=== PATIENT | female | born 1980 | race Caucasian/White ===

== ENCOUNTER 2024-02-12 13:49 | Outpatient (AMB) | payer MEDICAID, SELFPAY ==
--- NOTE | 2024-02-12 13:51 | MHC.OFFVIS ---
Vital Signs 02/12/24 14:05 Height 5 ft 2.5 in Weight 170 lb BMI 30.6 BP 110/74 Blood Pressure Location Lt brachial Position Sitting Pulse 81 Intake Visit Reasons: ventral incisional hernia with ongoing pain Intake Note: Patient is seen in office for evaluation and treatment of ventral incisional hernia. Pt c/o: pt can feel a lump on the RUQ for a month, admits to pain with laugh, cry, sneezing, cough, diarrhea, nausea, vomit Pi/Senior Research Associate Required: No Accompanied by: Other Relationship Allergies Penicillins [PENICILLINS] Allergy (Unknown, Unverified 02/12/24 13:59) HIVES Sulfa (Sulfonamide Antibiotics) [SULFA (SULFONAMIDE ANTIBIOTICS)] Allergy (Unknown, Unverified 02/12/24 13:59) HIVES sulfamethoxazole [From BACTRIM] Allergy (Unknown, Unverified 02/12/24 13:59) HIVES trimethoprim [From BACTRIM] Allergy (Unknown, Unverified 02/12/24 13:59) HIVES Medication List - Last Reconciled 02/12/24 by Pino Barahona MD baclofen 5 mg PO TID clonazepam 1 mg PO QID PRN clonidine HCl 0.1 mg PO TID ergocalciferol (vitamin D2) 1,250 mcg PO QWEEK gabapentin 300 mg PO TID ibuprofen 800 mg PO TID mirtazapine 7.5 mg PO DAILY trazodone 150 mg PO BEDTIME HPI Comments Details: 43-year-old female patient presenting for evaluation of a ventral hernia. She complains of abdominal pain located in the upper abdomen which developed after previous colon surgery. She has a history of diverticulitis with an abscess and underwent a colectomy with loop ileostomy in the right lower quadrant in 2019. The ileostomy was subsequently reversed approximately [address] abdomen and pelvis with contrast performed at [facility] revealed prior sigmoid colectomy with intact anastomosis in the pelvis. A broad-based supraumbilical ventral hernia containing nonobstructed transverse colon was identified. She presents to discuss repair of this incisional hernia. COUNT INCLUDES THE [facility] Surgical History History of reversal of ileostomy Hx of lumpectomy Hx of section Family History Father Cancer of unknown origin Social History Alcohol intake: current Patient Tobacco Use Status: Current everyday Tobacco user Review of Systems Const All systems reviewed & are unremarkable except as noted in HPI and below Denies chills, Denies fever(s), Denies headache(s), Denies poor appetite and Denies weakness ENT Denies headache(s) Card Denies chest pain, Denies irregular heart rhythm, Denies palpitations and Denies dyspnea Resp Denies cough, Denies excessive phlegm production and Denies dyspnea GI Denies abdominal pain, Denies bloating, Denies change in bowel habits, Denies constipation, Denies heartburn, Denies diarrhea, Denies nausea and Denies vomiting Denies urinary frequency Musc Denies back pain, Denies muscle weakness and Denies numbness Skin/Breast Denies changing lesions and Denies unusual bruising Neuro Denies headache(s), Denies numbness, Denies paresthesias and Denies weakness Psych Denies anxiety and Denies depression Endo Denies palpitations Frankie/Lymph Denies lymphadenopathy Physical Exam Vital Signs: Last Vital Signs Pulse 81 02/12/24 14:05 BP 110/74 02/12/24 14:05 BMI result Body Mass Index 30.6 Const General: cooperative and no acute distress Nutritional Appearance: well nourished Orientation/consciousness: patient oriented x3 Limitations: no limitations HEENT Head: Yes normocephalic and Yes atraumatic Ears: hearing grossly normal bilaterally Resp Effort & Inspection: normal respiratory effort, no audible wheezes, no cough and no respiratory distress Cardio Jugular venous distension: no JVD GI Other: Large midline incision as well as incision in the right lower quadrant from prior colon surgery. Hernia defect noted above the umbilicus in the midline measuring approximately 10 cm in diameter extending to the right of the umbilicus. Hernia does reduce with light pressure but is tender to palpation. There is no evidence of strangulation at this time. Inspection: Yes normal to inspection Skin Other: Warm, dry, no rash Neuro General: patient oriented x3 Extrem General: Yes no clubbing, cyanosis or edema Assessment & Plan Assessment & Plan (1) Incisional hernia: Code(s): K43.2 - Incisional hernia without obstruction or gangrene Category: Medical Qualifiers: Obstruction and gangrene presence: without obstruction or gangrene Qualified Code(s): K43.2 - Incisional hernia without obstruction or gangrene Plan 43-year-old female patient with prior history of sigmoid colectomy for perforated diverticulitis with ileostomy followed by closure of ileostomy. She now has an incisional hernia in the upper abdomen which is at least 10 cm in diameter. This was confirmed by CT abdomen and pelvis and found to contain transverse colon which is not obstructed. I recommended repair of this incisional hernia with mesh and after discussion of the procedure, risks, and alternatives, she consents to repair of incisional hernia with mesh. Coding Level of Care Code New Pt Level 4 (04798) Diagnoses Incisional hernia, without obstruction or gangrene K43.2 Obstruction and gangrene presence: without obstruction or gangrene
[2024-02-12 14:05] VITALS: BP 110/74; PULSE 81; BMI 30.6
== END 2024-02-12 14:20 | disposition home or self-care (01) ==
PROVIDERS: PCP Family Medicine; Visit Provider Surgery
DX: K43.2 Incisional hernia without obstruction or gangrene (principal)
CPT/HCPCS: 99204

== ENCOUNTER → 2024-02-12 13:49 | Outpatient (BNVA) | payer OTHER, SELFPAY | PROVIDERS: PCP Family Medicine; Visit Provider Surgery | DX: K43.2 Incisional hernia without obstruction or gangrene (principal) | CPT/HCPCS: 99202 ==

== ENCOUNTER → 2024-03-31 09:39 | Outpatient (BNV) | payer MEDICAID, SELFPAY | PROVIDERS: PCP Nurse Practitioner; Visit Provider Surgery | DX: K43.2 Incisional hernia without obstruction or gangrene (principal) | CPT/HCPCS: 49595; 99232; 99238 ==

== ENCOUNTER 2024-04-02 08:50 | Inpatient (IN) | payer MEDICAID, SELFPAY ==
[2024-03-22 15:09] VITALS: BMI 29.7
[2024-03-31] VITALS (15 sets, daily range): BP systolic 111–175; BP diastolic 62–119; PULSE 75–94; RESP 7–18; TEMP 36.2–36.6; O2SAT 94–98; BMI 30.5; BMI 31.0
[2024-03-31 10:26] LABS: UPreg QC Valid YES; Urine Pregnancy NEGATIVE (NEGATIVE)
[2024-03-31] MEDS: Lactated Ringers 1,000 ML 100 ML IVCONT (10:45)
[2024-03-31] MEDS: vancomycin HCL 1,500 MG in 0.9 % Sodium Chloride 500 ML 333.33 MG IV (10:45)
[2024-03-31] MEDS: HYDROmorphone HCl 1 MG/ML SYRINGE IVPUSH (11:19)
--- NOTE | 2024-03-31 11:25 | PC.NURSE ---
1100 [address] [employer] [facility]. montoya/surgeon and dr. ritter/anesthesiologist pt is crying with anxiety. request to obtain bedside consents for both in order to medicate. consents obtained and dr. ritter ordered dilaudid 1mg iv to be given @ 1119 as ordered. sats 95% ra s/p dilaudid. to give versed 1mg iv 10 later. pain reduced to 6/10 @ 11:30, not crying, looking at picture of dog on her telephone.
[2024-03-31] MEDS: Midazolam HCl/PF 2 MG/2 ML VIAL 1 MG IVPUSH (11:37)
--- NOTE | 2024-03-31 12:48 | MHC.SHP ---
Pre-Procedural Eval Section A - 24 Hr Update-Section A only Date of Service: 03/31/24 The patient is an INPATIENT: Yes Changes since office visit: Yes Patient answered all questions; No Cold of Flu in the past 2 weeks, No New Medical Problems and No Changes in Medication The patient has been examined within 24 hours of the surgical procedure. The History & Physical has been completed within 30 days and I have reviewed it.: Yes Section B - Complete if H&P > 30 days Chief Complaint: Incisional hernia without obstruction or gangrene Allergies: Allergies Allergy/AdvReac Type Severity Reaction Status Date / Time peach Allergy Severe Hives Verified 03/31/24 10:15 Sulfa (Sulfonamide Allergy Severe HIVES Verified 03/31/24 10:15 Antibiotics) [SULFA (SULFONAMIDE ANTIBIOTICS)] sulfamethoxazole Allergy Severe HIVES Verified 03/31/24 10:15 [From BACTRIM] trimethoprim [From BACTRIM] Allergy Severe HIVES Verified 03/31/24 10:15 Penicillins [PENICILLINS] Allergy Unknown HIVES, as Verified 03/31/24 10:15 a child Plan Diagnosis/Plan: Unchanged I have reviewed the history and physical and performed a pertinent physical examination on my patient. No changes have occurred unless specified. Time Spent With Patient Time: Total time managing care of this patient today ____ minutes.
--- NOTE | 2024-03-31 12:49 | MHC.SHP ---
Pre-Procedural Eval Section A - 24 Hr Update-Section A only Date of Service: 03/31/24 The patient is an INPATIENT: No Changes since office visit: Yes Patient answered all questions; No Cold of Flu in the past 2 weeks, No New Medical Problems and No Changes in Medication The patient has been examined within 24 hours of the surgical procedure. The History & Physical has been completed within 30 days and I have reviewed it.: Yes Section B - Complete if H&P > 30 days Chief Complaint: Incisional hernia without obstruction or gangrene Details of Present Illness: no change since last visit Relevant Family History (Specify if Yes): No Relevant Social History: None Present Medications: see Short Stay Collaborative assessment Medical History: No relevant PMH History of Previous Operations: Relevant previous surgery/procedure and date(s) Allergies: Allergies Allergy/AdvReac Type Severity Reaction Status Date / Time peach Allergy Severe Hives Verified 03/31/24 10:15 Sulfa (Sulfonamide Allergy Severe HIVES Verified 03/31/24 10:15 Antibiotics) [SULFA (SULFONAMIDE ANTIBIOTICS)] sulfamethoxazole Allergy Severe HIVES Verified 03/31/24 10:15 [From BACTRIM] trimethoprim [From BACTRIM] Allergy Severe HIVES Verified 03/31/24 10:15 Penicillins [PENICILLINS] Allergy Unknown HIVES, as Verified 03/31/24 10:15 a child Review of Systems Sugical H&P ROS: Negative: Constitution, Cardiovascular, Respiratory, Neurological, Psychiatric, Hem-Onc, Allergic/Immunologic, Gastrointestinal, Genitourinary, Musculoskeletal, Integumentary, Endocrine and Eyes/Ears/Nose/Throat Exam Surgical H&P Exam: Normal: HEENT, Normal: Heart, Normal: Lungs, Normal: Extremities, Normal: Skin and Normal: Neurological and Significant Findings: Abdomen (incisional hernia as previously noted) Plan Diagnosis/Plan: Unchanged I have reviewed the history and physical and performed a pertinent physical examination on my patient. No changes have occurred unless specified. Time Spent With Patient Time: Total time managing care of this patient today ____ minutes.
--- NOTE | 2024-03-31 13:17 | HO.ANESPROP2 ---
HPI - Anesthesia Eval Consult details Narrative: for repair incisional hernia. PMFSH Active Problems Active Problems: All Active Problems Incisional hernia (Acute) Past Medical History Medical History (Updated 03/22/24 @ 15:13 by Mago Smith RN) Hx of abscess of breast Panic attacks Smoker Hx of mastitis History of diverticulitis (~2019) Sacroiliac joint dysfunction Back pain Depression EDY (generalized anxiety disorder) PTSD (post-traumatic stress disorder) Patient : No Family History Family History Father Cancer of unknown origin Family history of problems with anesthesia: No Surgical History Surgical History (Updated 03/22/24 @ 10:51 by Mago Smith RN) Hx of colectomy (~04/2020) History of reversal of ileostomy (~07/2020) Hx of lumpectomy Hx of section (~2005) History of Problems with Anesthesia: No Social History Social History (Updated 03/22/24 @ 15:01 by Mago Smith RN) Household Members: Family Housing: House Are you a primary respiratory care faculty to a significant other at home: No Do you presently have visiting nurse or other home services: Yes (Community health Worker, PCP HOOP FLARING MACHINE OPERATOR visits at home) Alcohol intake: current Alcohol intake frequency: holidays/special occasions only Patient Tobacco Use Status: Current everyday Tobacco user Tobacco use type: Cigarette Cigarettes Per Day: 7 Smoked in Last 30 Days: Yes Use of substances other than those prescribed or required for medical reasons: Yes Substance Use Type: Marijuana Substance Use Frequency: Daily Have you been hit, kicked, punched, or otherwise hurt by someone within the past year? If so, by whom?: No Are you DNR?: No Advance Directives: No Advance Directives Information Provided: Yes Advance Directives on File: No Recently lost weight without trying: No Patient : No FDLMP: 02/06/2024 : No Poor oral hygiene: No Meds Allergies Allergy/AdvReac Type Severity Reaction Status Date / Time peach Allergy Severe Hives Verified 03/31/24 10:15 Sulfa (Sulfonamide Allergy Severe HIVES Verified 03/31/24 10:15 Antibiotics) [SULFA (SULFONAMIDE ANTIBIOTICS)] sulfamethoxazole Allergy Severe HIVES Verified 03/31/24 10:15 [From BACTRIM] trimethoprim [From BACTRIM] Allergy Severe HIVES Verified 03/31/24 10:15 Penicillins [PENICILLINS] Allergy Unknown HIVES, as Verified 03/31/24 10:15 a child Active Medications: Current Medications Lactated Ringer's (Lr) 1,000 mls @ 100 mls/hr IVCONT .Q10H LUKAS Last Admin: 03/31/24 10:45 Dose: 100 mls/hr Home Medications ?Medication ?Instructions ?Recorded ?Confirmed ?Last Taken ?Type baclofen 5 mg tablet 5 mg PO TID PRN Pain 02/12/24 03/22/24 Unknown History clonazepam 1 mg tablet 1 mg PO QID PRN Anxiety 02/12/24 03/22/24 03/31/24 History 1 mg clonidine HCl 0.1 mg tablet 0.1 mg PO TID PRN Anxiety 02/12/24 03/22/24 03/31/24 History 0.1 mg ergocalciferol (vitamin D2) 1,250 1,250 mcg PO QWEEK 02/12/24 03/22/24 Unknown History mcg (50,000 unit) capsule gabapentin 300 mg capsule 300 mg PO TID 02/12/24 03/22/24 03/31/24 History 300 mg ibuprofen 800 mg tablet 800 mg PO TID PRN Pain 02/12/24 03/22/24 03/24/24 History mirtazapine 15 mg tablet 15 mg PO BEDTIME 02/12/24 03/22/24 03/30/24 History trazodone 150 mg tablet 150 mg PO BEDTIME 02/12/24 03/22/24 03/30/24 History albuterol sulfate 90 mcg/actuation 2 inh inhalation QID PRN Shortness 03/22/24 03/22/24 Unknown History breath activated powder inhaler Of Breath Or Wheezing fluticasone fur. 100 mcg-umeclid 1 inh inhalation DAILY 03/22/24 03/22/24 03/31/24 History 62.5 mcg-vilant 25 mcg inhalat.powder (Trelegy Ellipta) ipratropium 0.5 mg-albuterol 3 mg ml inhalation 03/22/24 Unknown History (2.5 mg base)/3 mL nebulization soln montelukast 10 mg tablet 10 mg PO BEDTIME 03/22/24 03/22/24 03/30/24 History (Singulair) Exam Height,Weight and Vital Signs: Height 5 ft 2.5 in Weight 76.748 kg Pertinent Lab Results Pertinent Lab Results: Laboratory Tests 03/31/24 10:05 Urine Test NEGATIVE Airway Mallampati Class: II TM Dist: <=3cm Neck ROM: Full Loose/Missing/Broken Teeth: No Heart: ok Lungs: ok Assessment and Plan Assessment Anesthesia Assessment: Anesthesia Plan Discussed and Chart Reviewed Final Anesthetic Review Family History of Problems with Anesthesia: No History of Problems with Anesthesia: No NPO: Yes ASA Class: II Final Preanesthetic Review: No Changes in Pt Med Stat, Meds/Allgs Chart Reviewed, Consent Obtained/Reviewed and Anes Risks/Benef Reviewed Patient Risk: Intermediate Procedure Risk: Intermediate Anesthetic Plan Anesthetic Plan: GA and Agree w/ Assess. and Plan Disposition: Standard PACU
--- NOTE | 2024-03-31 14:35 | W.PM.OPN ---
Operative Note Operative Note Date of Service: 03/31/24 Narrative: Preoperative diagnosis: Incisional hernia, reducible Postoperative diagnosis: Same Procedure: Repair of incisional hernia, reducible, 10 cm Surgeon: Pino Barahona MD Ribbon Lapper Tender: Ila Rosas PA-C, LINDA Pack Anesthesia: General LMA Indications for procedure: 43-year-old female patient presenting with a previous midline abdominal incision with ileostomy in the right lower quadrant found to have a large incisional hernia in the periumbilical location. On examination the patient has a proximally 10 cm fascial defect. She presents for repair of this incisional hernia. Operative findings: Incisional hernia repaired in the upper midline using a 11 x 15 cm skirted mesh Specimen: None Estimated blood loss: 10 mL Complications: None Procedure details: Patient was brought to the OR and placed in a supine position. After administering general anesthesia the patient's abdomen was prepped with ChloraPrep and draped in a sterile fashion. A surgical time-out was called the consent confirmed. Patient received preoperative antibiotics and Venodyne boots were in place. Local anesthesia was infiltrated the midline above and below the umbilicus. A midline incision was then made over the previous incision and carried out through subcutaneous tissue up to the hernia sac. The hernia sac was then circumferentially dissected down to the fascial defect. A wide fascial defect was identified. The sac was entered and the adherent omentum dissected free from the hernia sac. This was then reduced to the abdominal cavity. Fascial edges were then further dissected circumferentially and a preperitoneal space created. This was done both with blunt dissection and electrocautery. The peritoneum was then closed using a 0 Polysorb suture. Preperitoneal space was then further dissected to allow a skirted mesh measuring 11 x 15 cm. This was placed within the preperitoneal space and secured circumferentially using 0 Tycron sutures. The mesh was also secured to the fascia using absorbable tacks. The abdomen was then thoroughly irrigated and suctioned dry. Fascia was then closed over the mesh using [id number] 1 Tycron sutures. This was done in a longitudinal fashion. Subcutaneous tissue and dermis were then reapproximated using interrupted 3-0 Polysorb sutures. Skin was then closed using skin brian. Sterile dressings were then applied. The patient tolerated the procedure well. Sponge, instrument, and needle counts reported as correct. The patient was transferred to PACU in stable condition.
[2024-03-31] MEDS: fentaNYL citrate/PF 100 MCG/2 ML VIAL 50 MCG IVPUSH ×2 (15:14→15:31)
[2024-03-31] MEDS: HYDROmorphone HCl 0.5 MG/0.5 ML SYRINGE IVPUSH (16:21)
[2024-03-31] MEDS: oxyCODONE HCl Immed Release 5 MG TABLET PO (16:28)
[2024-03-31] MEDS: clonazePAM 1 MG TABLET PO ×2 (16:29→19:09)
[2024-03-31] MEDS: Acetaminophen 1,000 MG/100 ML PIGGYBACK 400 MG IV ×2 (17:29→23:30)
[2024-03-31] MEDS: Gabapentin 300 MG CAPSULE PO ×2 (17:29→19:10)
[2024-03-31] MEDS: Dextrose 5 % and Lactated Ring 1,000 ML 125 ML IVCONT (17:45)
--- NOTE | 2024-03-31 18:09 | PHA.MEDREC ---
Pharmacy Consult ? Medication Reconciliation Pharmacy has completed the medication reconciliation. Confirmed medications with patient. Patient was a little distraught and overwhelmed from talking to so many people today but she was able to confirm her medications to the best of her ability. Patient states she was taking Ibuprofen but it was put on hold for 7 days due to the surgery but could not remember when she stopped it for this. Patient also states she was taking Vitamin D2 once weekly but due to some unfortunate events with her mom she has not been able to take them for a little while but does not remember when her last dose was.
[2024-03-31] MEDS: cloNIDine HCL 0.1 MG TABLET PO (19:07)
[2024-03-31] MEDS: Morphine Sulfate 4 MG/ML CARTRIDGE 5 MG IVPUSH ×2 (19:09→22:42)
[2024-03-31] MEDS: Mirtazapine 15 MG TABLET PO (19:09)
[2024-03-31] MEDS: traZODone HCL 50 MG TABLET 150 MG PO (19:09)
[2024-03-31] MEDS: Montelukast Sodium 10 MG TABLET PO (19:09)
[2024-03-31] MEDS: Baclofen 10 MG TABLET 5 MG PO (19:45)
[2024-04-01] VITALS (8 sets, daily range): BP systolic 100–144; BP diastolic 63–79; PULSE 79–108; RESP 16–19; TEMP 36.5–37.2; O2SAT 92–99
[2024-04-01] MEDS: oxyCODONE HCl Immed Release 5 MG TABLET PO ×3 (00:56→16:09)
[2024-04-01] MEDS: clonazePAM 1 MG TABLET PO ×3 (00:56→14:25)
[2024-04-01] MEDS: Morphine Sulfate 4 MG/ML CARTRIDGE 5 MG IVPUSH ×7 (02:07→20:53)
[2024-04-01] MEDS: Dextrose 5 % and Lactated Ring 1,000 ML 125 ML IVCONT ×2 (02:10→11:30)
[2024-04-01] MEDS: Baclofen 10 MG TABLET 5 MG PO ×2 (04:21→11:53)
[2024-04-01] MEDS: cloNIDine HCL 0.1 MG TABLET PO ×2 (04:22→11:54)
[2024-04-01] MEDS: Acetaminophen 1,000 MG/100 ML PIGGYBACK 400 MG IV ×2 (05:37→11:30)
[2024-04-01] MEDS: Gabapentin 300 MG CAPSULE PO ×3 (07:24→20:55)
[2024-04-01] MEDS: Fluticasone/Umeclidinium/Vilanterol 100/62.5/25 BLST.W.DEV 1 PUFF INHALE (07:56)
--- NOTE | 2024-04-01 10:24 | PM.PNGS ---
Subjective Subjective Date of Service: 04/01/24 Interval history: Continues to complain of pain especially in the left lower quadrant. She has not been passing too much gas or has had a bowel movement. She has gotten up and moved around a little bit. Not very nauseated but she has been burping. She says she has been able to hold down liquids and she is burps but she says that is kind of what she normally does anyway. Physical Exam Vital Signs: Vital Signs: Last Vital Signs Temp 98.1 F 04/01/24 07:52 Pulse 79 04/01/24 07:56 Resp 16 04/01/24 07:56 BP 110/70 04/01/24 07:52 Pulse Ox 92 04/01/24 07:52 O2 Del Method Room Air 04/01/24 07:52 O2 Flow Rate 2 03/31/24 17:13 BMI result Body Mass Index 31.0 GI: Other: Abdomen is soft it is tender diffusely consistent with her surgery and some hypoactive bowel sounds. Incision looks good. Psych: Other: Seems very anxious Objective Data Active Medications Albuterol Sulfate (Albuterol Sulfate 90 Mcg 8 Gm Inhaler) 2 puff INHALE QID PRN PRN Reason: Shortness Of Breath Or Wheezing Baclofen (Baclofen 10 Mg Tablet) 5 mg PO TID PRN PRN Reason: Pain, Severe (Pain Scale 7-10) Last Admin: 04/01/24 04:21 Dose: 5 mg Documented By: MICHELLE Clonazepam (Clonazepam 1 Mg Tablet) 1 mg PO QID PRN PRN Reason: Anxiety Last Admin: 04/01/24 00:56 Dose: 1 mg Documented By: MICHELLE Clonidine HCl (Clonidine Hcl 0.1 Mg Tablet) 0.1 mg PO TID PRN; Protocol PRN Reason: Anxiety Last Admin: 04/01/24 04:22 Dose: 0.1 mg Documented By: MICHELLE Fluticasone/Umeclidinium/Vilanterol (Fluticasone/Umeclidinium/Vilanterol 100/62.5/25 Blst.W.Dev) 1 puff INHALE RDAILY [facility] Last Admin: 04/01/24 07:56 Dose: 1 puff Documented By: AMARILIS Gabapentin (Gabapentin 300 Mg Capsule) 300 mg PO TID [facility] Last Admin: 04/01/24 07:24 Dose: 300 mg Documented By: ESVIN Acetaminophen (Ofirmev) 1,000 mg in 100 mls @ 400 mls/hr IV Q6H [facility] Stop: 04/01/24 12:14 Last Infusion: 04/01/24 05:52 Dose: Infused Documented By: MICHELLE Dextrose/Lactated Ringer's (D5lr) 1,000 mls @ 125 mls/hr IVCONT .Q8H [facility] Last Admin: 04/01/24 02:10 Dose: 125 mls/hr Documented By: MICHELLE Mirtazapine (Mirtazapine 15 Mg Tablet) 15 mg PO BEDTIME [facility] Last Admin: 03/31/24 19:09 Dose: 15 mg Documented By: MICHELLE Montelukast Sodium (Montelukast Sodium 10 Mg Tablet) 10 mg PO BEDTIME [facility] Last Admin: 03/31/24 19:09 Dose: 10 mg Documented By: MICHELLE Morphine Sulfate (Morphine Sulfate 4 Mg/Ml Cartridge) 5 mg IVPUSH Q3H PRN; Protocol PRN Reason: Pain, Severe (Pain Scale 7-10) Last Admin: 04/01/24 08:43 Dose: 5 mg Documented By: ESVIN Ondansetron HCl (Ondansetron Hcl 4 Mg/2 Ml Vial) 4 mg IVPUSH Q8H PRN PRN Reason: Nausea Oxycodone HCl (Oxycodone Hcl Immed Release 5 Mg Tablet) 5 mg PO Q6H PRN PRN Reason: Pain, Moderate(Pain Scale 4-6) Last Admin: 04/01/24 07:25 Dose: 5 mg Documented By: ESVIN Trazodone HCl (Trazodone Hcl 50 Mg Tablet) 150 mg PO BEDTIME [facility] Last Admin: 03/31/24 19:09 Dose: 150 mg Documented By: MICHELLE Labs Labs: Laboratory Results - last 24 hr 03/31/24 10:05 Urine Test NEGATIVE Procedures Date of Service Date of Service: 04/01/24 Progress Note: A&P Assessment and plan (1) Incisional hernia: Status: Acute Plan Patient is postop day 1 from abdominal wall hernia repair extensive with complaints of pain which I think are appropriate. Plan is to slowly carry out p.o. intake advance but to encourage p.o. liquids. She is complaining of needing to urinate a lot so we would decreased her IV fluids and potentially Hep-Lock later on if she continues to do well. We will try some Toradol she is on baclofen and oxycodone. Try to get away from IV narcotics. Her Tylenol has stopped. In addition we will continue with Colace and maybe try some MiraLax and have her have a bowel movement and maybe that will improve her symptoms. She understands and agrees with the above plan. Continue with her abdominal wall binder Time Spent With Patient Time: Total time managing care of this patient today ____ minutes. Quality Stroke Does the patient have a stroke diagnosis?: No VTE Prior VTE?: No VTE Risk Level:: Surgical - low VTE Device Contraindication: N/A - Device Ordered VTE Drug Contraindication: Treatment Not Indicated
--- NOTE | 2024-04-01 10:41 | MHC.CM.PN ---
PT REPORTS SHE LIVES WITH HER TWIN DAUGHTERS AND A ROOMMATE SHE SAYS HER DAUGHTERS ASSIST HER WITH CARE PRN SHE HAS A NEBULIZER SHE USES NEEDED SHE SAYS SHE HAS A HCP, COPY REQUESTED PCP: WILLAM MARTINEZ DCP: HOME NO SERVICES VIA FAMILY TRANSPORT
--- NOTE | 2024-04-01 13:02 | PC.NURSE ---
Patient crying, teary, anxious c/o 10/10 left lower abdominal pain, worsening with movement and ambulation. Patient given 5mg oxycodone at 0730 and 5mg morphine at 0830 and 1130 with no relief. VSS. Surgeon notified. New orders for scheduled toradol and increase of oxycodone from 5mg to 10mg q4hrs. Dressing to mid abdomen and abdominal binder stained with small amount of bloody drainage. Dressing reinforced with gauze and abd pad.
[2024-04-01] MEDS: oxyCODONE HCl Immed Release 5 MG TABLET 10 MG PO ×2 (13:20→18:39)
[2024-04-01] MEDS: Ketorolac Tromethamine 15 MG/ML VIAL IVPUSH ×2 (13:21→18:33)
[2024-04-01] MEDS: Docusate Sodium 100 MG CAPSULE PO ×2 (13:22→20:55)
--- NOTE | 2024-04-01 18:49 | HO.POSTANES ---
Post Anesthesia Evaluation Post Anesthesia Evaluation Date of Service: 04/01/24 Vital Signs: Vital Signs Temp Pulse Resp BP Pulse Ox O2 Del Method 04/01/24 17:42 19 04/01/24 15:58 97.7 F 87 16 100/63 94 04/01/24 11:00 99.0 F 99 18 123/73 92 Room Air 04/01/24 07:56 79 16 04/01/24 07:52 98.1 F 79 16 110/70 92 Room Air Anesthesia: General LMA Mental Status: Awake Pain Control: Satisfactory Nausea/Vomiting: None Hydration: Adequate Anesthesia-Related Issues: No Anes. Related Issues
[2024-04-01] MEDS: Montelukast Sodium 10 MG TABLET PO (20:55)
[2024-04-01] MEDS: Mirtazapine 15 MG TABLET PO (20:55)
[2024-04-01] MEDS: traZODone HCL 50 MG TABLET 150 MG PO (20:55)
[2024-04-02] VITALS (8 sets, daily range): BP systolic 92–117; BP diastolic 52–76; PULSE 98–119; RESP 17–18; TEMP 36.3–37.4; O2SAT 83–94
[2024-04-02] MEDS: Dextrose 5 % and Lactated Ring 1,000 ML 74 ML IVCONT (00:35)
[2024-04-02] MEDS: oxyCODONE HCl Immed Release 5 MG TABLET 10 MG PO ×4 (03:46→21:26)
[2024-04-02] MEDS: ondansetron HCL 4 MG/2 ML VIAL IVPUSH (04:32)
[2024-04-02] MEDS: Morphine Sulfate 4 MG/ML CARTRIDGE 5 MG IVPUSH ×4 (05:43→17:09)
[2024-04-02] MEDS: polyethylene glycoL 3350 17 GM POWD.PACK PO (06:28)
[2024-04-02] MEDS: Ketorolac Tromethamine 15 MG/ML VIAL IVPUSH ×3 (06:30→17:56)
[2024-04-02] MEDS: Fluticasone/Umeclidinium/Vilanterol 100/62.5/25 BLST.W.DEV 1 PUFF INHALE (07:35)
--- NOTE | 2024-04-02 07:47 | P.PNGS_ITS ---
Subjective Subjective Date of Service: 04/02/24 Interval history: Complains of pain, controlled with the current pain meds. No BM yet, passing some flatus. Physical Exam Vital Signs: Vital Signs: Last Vital Signs Temp 99.3 F 04/02/24 03:50 Pulse 109 H 04/02/24 07:35 Resp 17 04/02/24 07:35 BP 114/74 04/02/24 03:50 Pulse Ox 93 04/02/24 03:50 O2 Del Method Room Air 04/02/24 03:50 O2 Flow Rate 2 03/31/24 17:13 BMI result Body Mass Index 31.0 Const: General: no acute distress Nutritional Appearance: well nourished Orientation/consciousness: patient oriented x3 Limitations: no limitations Resp: Effort & Inspection: normal respiratory effort, no audible wheezes, Actively coughing and no respiratory distress GI: Other: midline incision is clean, dry and intact without redness. Small amount of discharge noted on dressings. Clean, dry dressings applied. Abdominal binder reapplied. Neuro: General: patient oriented x3 Extrem: General: Yes normal to inspection Objective Data Active Medications Albuterol Sulfate (Albuterol Sulfate 90 Mcg 8 Gm Inhaler) 2 puff INHALE QID PRN PRN Reason: Shortness Of Breath Or Wheezing Baclofen (Baclofen 10 Mg Tablet) 5 mg PO TID PRN PRN Reason: Pain, Severe (Pain Scale 7-10) Last Admin: 04/01/24 11:53 Dose: 5 mg Documented By: ESVIN Clonazepam (Clonazepam 1 Mg Tablet) 1 mg PO QID PRN PRN Reason: Anxiety Last Admin: 04/01/24 14:25 Dose: 1 mg Documented By: ESVIN Clonidine HCl (Clonidine Hcl 0.1 Mg Tablet) 0.1 mg PO TID PRN; Protocol PRN Reason: Anxiety Last Admin: 04/01/24 11:54 Dose: 0.1 mg Documented By: ESVIN Docusate Sodium (Docusate Sodium 100 Mg Capsule) 100 mg PO BID LUKAS Last Admin: 04/01/24 20:55 Dose: 100 mg Documented By: GUY Fluticasone/Umeclidinium/Vilanterol (Fluticasone/Umeclidinium/Vilanterol 100/62.5/25 Blst.W.Dev) 1 puff INHALE RDAILY [facility] Last Admin: 04/02/24 07:35 Dose: 1 puff Documented By: NONA Gabapentin (Gabapentin 300 Mg Capsule) 300 mg PO TID [facility] Last Admin: 04/01/24 20:55 Dose: 300 mg Documented By: GUY Dextrose/Lactated Ringer's (D5lr) 1,000 mls @ 74 mls/hr IVCONT .[id number] [facility] Last Admin: 04/02/24 00:35 Dose: 74 mls/hr Documented By: GUY Ketorolac Tromethamine (Ketorolac Tromethamine 15 Mg/Ml Vial) 15 mg IVPUSH Q6H [facility] Stop: 04/03/24 07:00 Last Admin: 04/02/24 06:30 Dose: 15 mg Documented By: GUY Mirtazapine (Mirtazapine 15 Mg Tablet) 15 mg PO BEDTIME [facility] Last Admin: 04/01/24 20:55 Dose: 15 mg Documented By: GUY Montelukast Sodium (Montelukast Sodium 10 Mg Tablet) 10 mg PO BEDTIME [facility] Last Admin: 04/01/24 20:55 Dose: 10 mg Documented By: GUY Morphine Sulfate (Morphine Sulfate 4 Mg/Ml Cartridge) 5 mg IVPUSH Q3H PRN; Protocol PRN Reason: Pain, Severe (Pain Scale 7-10) Last Admin: 04/02/24 05:43 Dose: 5 mg Documented By: GUY Ondansetron HCl (Ondansetron Hcl 4 Mg/2 Ml Vial) 4 mg IVPUSH Q8H PRN PRN Reason: Nausea Last Admin: 04/02/24 04:32 Dose: 4 mg Documented By: GUY Oxycodone HCl (Oxycodone Hcl Immed Release 5 Mg Tablet) 5 mg PO Q6H PRN PRN Reason: Pain, Mild (Pain Scale 1-3) Last Admin: 04/01/24 16:09 Dose: 5 mg Documented By: COTEMA Oxycodone HCl (Oxycodone Hcl Immed Release 5 Mg Tablet) 10 mg PO Q4H PRN PRN Reason: Pain, Moderate(Pain Scale 4-6) Last Admin: 04/02/24 03:46 Dose: 10 mg Documented By: GUY Polyethylene Glycol (Polyethylene Glycol 3350 17 Gm Powd.Pack) 17 gm PO DAILY PRN PRN Reason: Constipation Last Admin: 04/02/24 06:28 Dose: 17 gm Documented By: GUY Trazodone HCl (Trazodone Hcl 50 Mg Tablet) 150 mg PO BEDTIME [facility] Last Admin: 04/01/24 20:55 Dose: 150 mg Documented By: GUY Procedures Date of Service Date of Service: 04/02/24 Progress Note: A&P Assessment and plan (1) Incisional hernia: Status: Acute Plan POD #2 s/p open incisional hernia repair, pain issues remain today. Patient is ambulating in hallways, no BM yet. Wounds clean and intact. D/C IVF's Time Spent With Patient Time: Total time managing care of this patient today ____ minutes. Quality Stroke Does the patient have a stroke diagnosis?: No VTE Prior VTE?: No VTE Risk Level:: Surgical - low VTE Device Contraindication: N/A - Device Ordered VTE Drug Contraindication: Treatment Not Indicated
[2024-04-02] MEDS: Gabapentin 300 MG CAPSULE PO ×3 (08:08→21:27)
[2024-04-02] MEDS: Docusate Sodium 100 MG CAPSULE PO ×2 (08:08→21:27)
[2024-04-02] MEDS: cloNIDine HCL 0.1 MG TABLET PO ×2 (08:14→15:55)
[2024-04-02] MEDS: clonazePAM 1 MG TABLET PO ×2 (08:14→14:17)
[2024-04-02] MEDS: Baclofen 10 MG TABLET 5 MG PO ×2 (08:16→15:55)
--- NOTE | 2024-04-02 10:14 | MHC.CM.PN ---
EMR REVIEWED. PT HAS NOT HAD BM YET. PT AMBULATING IN [place]. CM WILL CONTINUE TO FOLLOW FOR ANY CHANGE TO DC PLAN/NEEDS.
--- NOTE | 2024-04-02 13:09 | PC.NURSE ---
Pt's mentation suggest that she may be taking to much narcotic pain meds. She appears intoxicated at times requiring redirection or clarification with tasks. Dr. Barahona was made aware and spoke with pt.
[2024-04-02] MEDS: traZODone HCL 50 MG TABLET 150 MG PO (21:25)
[2024-04-02] MEDS: Mirtazapine 15 MG TABLET PO (21:26)
[2024-04-02] MEDS: Montelukast Sodium 10 MG TABLET PO (21:26)
[2024-04-03] MEDS: Morphine Sulfate 4 MG/ML CARTRIDGE 5 MG IVPUSH ×4 (02:23→16:12)
[2024-04-03 03:58] VITALS: BP 114/67; PULSE 105; RESP 20; TEMP 37.2; O2SAT 93
[2024-04-03] MEDS: Ketorolac Tromethamine 15 MG/ML VIAL IVPUSH (06:10)
[2024-04-03] MEDS: Fluticasone/Umeclidinium/Vilanterol 100/62.5/25 BLST.W.DEV 1 PUFF INHALE (07:41)
[2024-04-03 07:42] VITALS: PULSE 105; RESP 20; O2SAT 94
[2024-04-03 07:43] VITALS: BP 113/73; PULSE 102; RESP 20; TEMP 37.4; O2SAT 90
[2024-04-03] MEDS: cloNIDine HCL 0.1 MG TABLET PO (09:02)
[2024-04-03] MEDS: Docusate Sodium 100 MG CAPSULE PO (09:02)
[2024-04-03] MEDS: Gabapentin 300 MG CAPSULE PO ×2 (09:02→15:35)
[2024-04-03] MEDS: clonazePAM 1 MG TABLET PO ×2 (09:02→15:35)
[2024-04-03] MEDS: oxyCODONE HCl Immed Release 5 MG TABLET 10 MG PO (10:06)
[2024-04-03 11:44] VITALS: BP 112/64; PULSE 98; RESP 16; TEMP 37.5; O2SAT 92
[2024-04-03] MEDS: polyethylene glycoL 3350 17 GM POWD.PACK PO ×2 (12:23→13:48)
[2024-04-03 15:48] VITALS: BP 126/85; PULSE 108; RESP 18; TEMP 37.2; O2SAT 94
--- NOTE | 2024-04-03 18:03 | P.DS_ITS ---
DS: Providers Provider Date of Service: 04/03/24 Date of admission: 04/02/24 08:50 Date of discharge: 04/03/24 Primary care physician: Shaunna Quach NP Attending physician on discharge: Nela Izquierdo DS: Diagnosis Discharge Diagnosis (1) Incisional hernia: Status: Acute DS: Summary Hospital Course Hospital Course: The patient is a 44-year-old female who had an incisional hernia repair 3 days ago and has been in the hospital for pain control. She has been feeling better but still complains of pain not sleeping not eating. She does have some anxiety issues which I think are overriding her recovery. Generally however her vitals are fine her incisions in her abdomen looks good. She has good bowel sounds. She has not had a bowel movement as yet and was little concerned about that but today wants to go home and tries to have a bowel movement there. I think that this should be fine. Plan to DC her home with some p.o. pain meds and some stool softeners. We talked about going home and she is going to try to go home with a friend to their house as she will be able to have more assistance for the 1st couple of days and her recovery. She has a follow up appointment to see her surgical team on the upcoming week. Status at Discharge Functional status at discharge: independent ambulation Overall status at discharge: patient is progressing back to baseline Time Attestation Total time managing care of this patient today: 30 mintues. Discharge Coordination Time (in mins): Good Quality: Safe Use of Opioids Does Pt have an Active Cancer Diagnosis on the Problem List?: No Quality: Stroke Does the patient have a stroke diagnosis?: No Reason for No Anti-thrombotic at DC: Not indicated Reason for No Anticoagulant at DC: Not indicated Physical Exam Vital Signs: Vital Signs: Last Vital Signs Temp 98.9 F 04/03/24 15:48 Pulse 108 H 04/03/24 15:48 Resp 18 04/03/24 15:48 BP 126/85 04/03/24 15:48 Pulse Ox 94 04/03/24 15:48 O2 Del Method Room Air 04/03/24 15:48 O2 Flow Rate 2 03/31/24 17:13 BMI result Body Mass Index 31.0 GI: Other: Abdomen is little distended but soft her incision looks great no erythema or drainage and good bowel sounds Psych: Affect: Labile affect present, Animated affect present and Anxious affect present Thought process: Flight of ideas present Discharge Plan Discharge Anticipated Discharge Date/Time: 04/02/24 08:52 Patient Disposition: Home, Self-Care Discharge Diagnosis: s/p repair of incisional hernia Referrals: Shaunna Quach NP [Primary Care Provider] - 1 Week Pino Barahona MD [Physician] - 1 Week Discharge Medications: New oxycodone 5 mg tablet 5 mg PO Q4H PRN (Reason: pain (scale score 7-10)) Qty: 30 0RF Rx Instructions: Partial Fill upon patient request. docusate sodium [Colace] 100 mg capsule 100 mg PO BID Qty: 30 0RF Continued ipratropium-albuterol 0.5 mg-3 mg(2.5 mg base)/3 mL solution for nebulization 3 ml inhalation DAILY Trelegy Ellipta 100-62.5-25 mcg Blister With Device 1 inh INHALATION DAILY albuterol sulfate 90 mcg/actuation Aerosol Powdr Breath Activated 2 inh INHALATION QID PRN (Reason: Shortness Of Breath Or Wheezing) montelukast [Singulair] 10 mg Tablet 10 mg PO BEDTIME mirtazapine 15 mg tablet 15 mg PO BEDTIME baclofen 5 mg tablet 5 mg PO TID PRN (Reason: Pain) clonidine HCl 0.1 mg tablet 0.1 mg PO TID PRN (Reason: Anxiety) clonazepam 1 mg tablet 1 mg PO QID PRN (Reason: Anxiety) gabapentin 300 mg capsule 300 mg PO TID trazodone 150 mg tablet 150 mg PO BEDTIME ibuprofen 800 mg tablet 800 mg PO TID PRN (Reason: Pain) Discharge Orders: Discharge Order (Routine); Ordered 04/03/24 Ordered By: Nela Izquierdo Diet: Advance to usual diet Activity on Discharge: No heavy lifting Stand Alone Forms: Patient Portal Discharge page Print Language: Icelandic Activity Restrictions/Additional Instructions: If the incision area is tender, you may apply an ice pack for short intervals (No more than 20 minutes on, followed by at least 20 minutes off). Do not apply heat. Do not use creams, lotions, or topical antibiotics. These can cause infection or allergic reaction. Ok to shower. You have brian closing your incision and these will be removed approximately 10-14 days after surgery. NO HEAVY LIFTING (>10lbs) or strenuous activity. Wear your abdominal binder daily. Take Tylenol Extra-strength 1-2 tabs every 6 hours as needed. Oxycodone every 6- 8 hours as needed for pain. Colace 100 mg every day as needed for constipation. Follow up in office. ([phone]) Call Your Doctor If: -Your temperature exceeds 101.5? F -You experience excessive pain or swelling -You have an unexpected reaction to medication -You have excessive bleeding -You experience continued vomiting/nausea -Your incision begins to separate -Your incision shows signs of infection such as increased redness, swelling, excessive pain, drainage (light blood or clear fluid is normal) or heat Care Plan Goals: Return to baseline health and resume normal activities following recovery period. Health Concerns: incisional hernia Plan of Treatment: s/p incisional hernia repair with mesh Pain control Wear abdominal binder daily F/u in office in 1 week for staple removal Assessment: Doing well post op.
== END 2024-04-03 18:12 | disposition home or self-care (01) | DRG 227 ==
LOC: HO.SSS 08:51 → HO.S3 08:51
PROVIDERS: Admitting Provider Surgery; PCP Nurse Practitioner; Visit Provider Surgery
PROC: 0WUF0JZ Supplement Abdominal Wall with Synthetic Substitute, Open Approach (ICD-10-PCS; principal; 2024-03-31 12:00)
DX: K43.2 Incisional hernia without obstruction or gangrene (principal); F41.1 Generalized anxiety disorder; F43.10 Post-traumatic stress disorder, unspecified; Z79.899 Other long term (current) drug therapy
CPT/HCPCS: 81025; 94640; C1781; C1889; J0131; J1170; J1885; J2250; J2270; J2405; J2704; J2795; J3010; J3371

== ENCOUNTER 2024-04-09 09:20 | Outpatient (AMB) | payer MEDICAID, SELFPAY ==
--- NOTE | 2024-04-09 09:26 | A.OFFVIS_ITS ---
Vital Signs 04/09/24 09:31 Height 5 ft 3 in Weight 165 lb BMI 29.2 BP 122/99 H Blood Pressure Location Lt brachial Pulse 91 Intake Visit Reasons: S/P incisional hernia w/mesh Intake Note: Patient is seen in office for post op assessment post incisional hernia repair. 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 Accompanied by: Self / Same As Patient Allergies peach Allergy (Severe, Verified 04/09/24 09:31) Hives Sulfa (Sulfonamide Antibiotics) [SULFA (SULFONAMIDE ANTIBIOTICS)] Allergy (Severe, Verified 04/09/24 09:31) HIVES sulfamethoxazole [From BACTRIM] Allergy (Severe, Verified 04/09/24 09:31) HIVES trimethoprim [From BACTRIM] Allergy (Severe, Verified 04/09/24 09:31) HIVES Penicillins [PENICILLINS] Allergy (Unknown, Verified 04/09/24 09:31) HIVES, as a child Medication List - Last Reconciled 04/09/24 by Pino Barahona MD albuterol sulfate 90 mcg/actuation 2 inhalations inhalation QID PRN baclofen 5 mg PO TID PRN clonazepam 1 mg PO QID PRN clonidine HCl 0.1 mg PO TID PRN docusate sodium (Colace) 100 mg PO BID gpewqymucaf-vxckzymoi-jvejchnf 100-62.5-25 mcg (Trelegy Ellipta) 1 inh inhalation DAILY gabapentin 300 mg PO TID ibuprofen 800 mg PO TID PRN ipratropium-albuterol 0.5 mg-3 mg(2.5 mg base)/3 mL 3 mL inhalation DAILY mirtazapine 15 mg PO BEDTIME montelukast (Singulair) 10 mg PO BEDTIME oxycodone 5 mg PO Q4H PRN trazodone 150 mg PO BEDTIME HPI Comments Details: 44-year-old female patient returning following repair of a large incisional hernia on 03/31/2024 as a short-stay admit. She was subsequently discharged home on 04/03/2024. She reports soreness especially in the left lower quadrant and occasional discharge from the incision. She continues to wear the abdominal binder which she finds helpful. Her daughter has been helping with dressing changes. [facility] Medical History Hx of abscess of breast Panic attacks Smoker Hx of mastitis History of diverticulitis (~2019) Sacroiliac joint dysfunction Back pain Depression EDY (generalized anxiety disorder) PTSD (post-traumatic stress disorder) Surgical History History of incisional hernia repair (03/31/24) Hx of colectomy (~04/2020) History of reversal of ileostomy (~07/2020) Hx of lumpectomy Hx of section (~2005) Family History Father Cancer of unknown origin Social History Household Members: Family Housing: House Are you a primary family day carer to a significant other at home: No Do you presently have visiting nurse or other home services: Yes Alcohol intake: current Alcohol intake frequency: holidays/special occasions only Comment: counts correct Patient Tobacco Use Status: Current everyday Tobacco user Tobacco use type: Cigarette Cigarettes Per Day: 7 Substance Use Type: Marijuana service: No Physical Exam Const General: healthy appearing Nutritional Appearance: well nourished Orientation/consciousness: patient oriented x3 Resp Effort & Inspection: normal respiratory effort, no audible wheezes, no cough and no respiratory distress GI Other: Midline incision is clean, dry, and intact. There is small amount of serosa nguineous discharge noted from the lower incision. Palpation does reveal a small hematoma in the right lower quadrant. No erythema is noted and no purulent drainage is apparent. Dry sterile dressings were applied followed by paper tape. Neuro General: patient oriented x3 Assessment & Plan Assessment & Plan (1) Incisional hernia: Code(s): K43.2 - Incisional hernia without obstruction or gangrene Category: Medical Qualifiers: Obstruction and gangrene presence: without obstruction or gangrene Qual ified Code(s): K43.2 - Incisional hernia without obstruction or gangrene Plan 44-year-old female patient with a large incisional hernia status post repair 1 week ago. Her wounds are clean and intact but does have a small amount of serosanguineous discharge between brian. There does appear to be a small hematoma in the right lower quadrant. Recommend continuing applying dry sterile dressings and continue with the abdominal binder. [place] were left in place. She will return in 1 week for possible staple removal. She should continue to avoid lifting greater than 10 lb. Recommended using warmth rather than ice. Coding Level of Care Code Global (68638) Diagnoses Incisional hernia, without obstruction or gangrene K43.2 Obstruction and gangrene presence: without obstruction or gangrene
[2024-04-09 09:31] VITALS: BP 122/99; PULSE 91; BMI 29.2
== END 2024-04-09 09:54 | disposition home or self-care (01) ==
PROVIDERS: PCP Nurse Practitioner; Visit Provider Surgery
DX: K43.2 Incisional hernia without obstruction or gangrene (principal); L76.32 Postprocedural hematoma of skin and subcutaneous tissue following other procedure
CPT/HCPCS: 99213

== ENCOUNTER → 2024-04-09 09:20 | Outpatient (BNVA) | payer MEDICAID, SELFPAY | PROVIDERS: PCP Nurse Practitioner; Visit Provider Surgery | DX: K43.2 Incisional hernia without obstruction or gangrene (principal) | CPT/HCPCS: 99212 ==

== ENCOUNTER 2024-04-20 14:37 | Outpatient (AMB) | payer MEDICAID, SELFPAY ==
--- NOTE | 2024-04-20 14:45 | A.OFFVIS_ITS ---
Vital Signs 04/20/24 14:46 Height 5 ft 3 in Weight 167 lb BMI 29.6 Pulse 90 Intake Visit Reasons: 1 week follow-up s/p incisional hernia w/mesh Intake Note: Patient is seen in office for one week follow up visit, post incisional hernia repair. 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 In general she is feeling improved but does have some incisional discomfort. 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 She had 1 episode of nausea and vomiting earlier in the week due to eating tomato sauce. She denies any fever or chills. [facility] Medical History Hx of abscess of breast Panic attacks Smoker Hx of mastitis History of diverticulitis (~2019) Sacroiliac joint dysfunction Back pain Depression EDY (generalized anxiety disorder) PTSD (post-traumatic stress disorder) Surgical History History of incisional hernia repair (03/31/24) Hx of colectomy (~04/2020) History of reversal of ileostomy (~07/2020) Hx of lumpectomy Hx of section (~2005) Family History Father Cancer of unknown origin Social History Household Members: Family Housing: House Are you a primary primary care physician to a significant other at home: No Do you presently have visiting nurse or other home services: Yes Alcohol intake: current Alcohol intake frequency: holidays/special occasions only Comment: counts correct Patient Tobacco Use Status: Current everyday Tobacco user Tobacco use type: Cigarette Cigarettes Per Day: 7 Substance Use Type: Marijuana service: No Physical Exam Vital Signs: Last Vital Signs Pulse 90 04/20/24 14:46 BMI result Body Mass Index 29.6 Const General: no acute distress Nutritional Appearance: well nourished Orientation/consciousness: patient oriented x3 Limitations: no limitations Resp Effort & Inspection: normal respiratory effort GI Other: Well-healed midline incision with intact brian. There is a small amount of discharge from the brian pulling on her skin. Evidence of hematoma or seroma. No hernia noted with Valsalva maneuvers. [place] were removed and Steri- Strips applied. Neuro General: patient oriented x3 Assessment & Plan Assessment & Plan (1) Incisional hernia: Code(s): K43.2 - Incisional hernia without obstruction or gangrene Category: Medical Qualifiers: Obstruction and gangrene presence: without obstruction or gangrene Qualified Code(s): K43.2 - Incisional hernia without obstruction or gangrene Plan 44-year-old female patient returning for her 1st postoperative visit following repair of a large incisional hernia. Her wounds are healing nicely with no e vidence of infection or hernia recurrence. I recommended she continue to avoid lifting greater than 10 lb and return prior to the end of the month to determine if she is ready to return to work. He expressed understanding and agrees with the plan. Coding Level of Care Code Global (94000) Diagnoses Incisional hernia, without obstruction or gangrene K43.2 Obstruction and gangrene presence: without obstruction or gangrene
[2024-04-20 14:46] VITALS: PULSE 90; BMI 29.6
== END 2024-04-20 15:16 | disposition home or self-care (01) ==
PROVIDERS: PCP Nurse Practitioner; Visit Provider Surgery
DX: K43.2 Incisional hernia without obstruction or gangrene (principal)
CPT/HCPCS: 99212

== ENCOUNTER → 2024-04-20 14:37 | Outpatient (BNVA) | payer MEDICAID, SELFPAY | PROVIDERS: PCP Nurse Practitioner; Visit Provider Surgery | DX: Z48.815 Encounter for surgical aftercare following surgery on the digestive system (principal) | CPT/HCPCS: 99212 ==

== ENCOUNTER 2024-04-27 09:22 | Outpatient (AMB) | payer MEDICAID, SELFPAY ==
--- NOTE | 2024-04-27 09:55 | A.OFFVIS_ITS ---
Vital Signs 04/27/24 09:58 Height 5 ft 3 in Weight 166 lb 10.711 oz BMI 29.5 BP 184/104 H Blood Pressure Location Lt brachial Position Sitting Pulse 87 Intake Visit Reasons: 1 week follow-up s/p incisional hernia w/mesh Intake Note: Kayley presents in the office as a 1 week follow up for incisional hernia w/ mesh. CC: Patient is in pain - she states that she tried to take the trash out yesterday and has been in severe pains. She states that she is suposed to go to work tomorrow but there is no way. Just pains where the surgery was - states that she felt a muscle in the back when she was taking the trash out as well - visibly upset. Professional Healthcare Representative Required: No Allergies peach Allergy (Severe, Verified 04/27/24 10:07) Hives Sulfa (Sulfonamide Antibiotics) [SULFA (SULFONAMIDE ANTIBIOTICS)] Allergy (Severe, Verified 04/27/24 10:07) HIVES sulfamethoxazole [From BACTRIM] Allergy (Severe, Verified 04/27/24 10:07) HIVES trimethoprim [From BACTRIM] Allergy (Severe, Verified 04/27/24 10:07) HIVES Penicillins [PENICILLINS] Allergy (Unknown, Verified 04/27/24 10:07) HIVES, as a child Medication List - Last Reconciled 04/27/24 by Pino Barahona MD albuterol sulfate 90 mcg/actuation 2 inhalations inhalation QID PRN baclofen 5 mg PO TID PRN clonazepam 1 mg PO QID PRN clonidine HCl 0.1 mg PO TID PRN doxycycline hyclate 100 mg PO BID mkumwrrbmiw-upvkoxwet-kpbqppel 100-62.5-25 mcg (Trelegy Ellipta) 1 inh inhalation DAILY gabapentin 300 mg PO TID ibuprofen 800 mg PO TID PRN ipratropium-albuterol 0.5 mg-3 mg(2.5 mg base)/3 mL 3 mL inhalation DAILY mirtazapine 15 mg PO BEDTIME montelukast (Singulair) 10 mg PO BEDTIME oxycodone 5 mg PO Q8H PRN trazodone 150 mg PO BEDTIME HPI Comments Details: Patient returns today crying in pain after taking out the trash yesterday in feeling a pop in the incision. She reports some redness in the skin now with discharge. She denies fever or chills. She is eating but denies nausea or vomiting. She previously underwent repair of an incisional hernia on 03/31/2024 using a 11 x 15 cm skirted mesh. She continues to wear the abdominal binder which she finds helpful. [facility] Medical History Hx of abscess of breast Panic attacks Smoker Hx of mastitis History of diverticulitis (~2019) Sacroiliac joint dysfunction Back pain Depression EDY (generalized anxiety disorder) PTSD (post-traumatic stress disorder) Surgical History History of incisional hernia repair (03/31/24) Hx of colectomy (~04/2020) History of reversal of ileostomy (~07/2020) Hx of lumpectomy Hx of section (~2005) Family History Father Cancer of unknown origin Social History Household Members: Family Housing: House Are you a primary day care provider to a significant other at home: No Do you presently have visiting nurse or other home services: Yes Alcohol intake: current Alcohol intake frequency: holidays/special occasions only Comment: counts correct Patient Tobacco Use Status: Current everyday Tobacco user Tobacco use type: Cigarette Cigarettes Per Day: 7 Substance Use Type: Marijuana service: No Physical Exam Vital Signs: Last Vital Signs Pulse 87 04/27/24 09:58 BP 184/104 H 04/27/24 09:58 BMI result Body Mass Index 29.5 Const General: no acute distress Nutritional Appearance: well nourished Orientation/consciousness: patient oriented x3 Limitations: no limitations Resp Effort & Inspection: normal respiratory effort GI Other: She continues to have skin opening in the mid incision from where the brian had pulled through. There is some serous discharge noted with surrounding redness in the skin. No palpable seroma is appreciated. No palpable hernias appreciated although it is difficult to examine due to the patient's tenderness. A dry sterile dressing was applied. Neuro General: patient oriented x3 Extrem General: Yes no clubbing, cyanosis or edema Assessment & Plan Assessment & Plan (1) Cellulitis: Code(s): L03.90 - Cellulitis, unspecified Category: Medical (2) Incisional hernia: Code(s): K43.2 - Incisional hernia without obstruction or gangrene Category: Medical Qualifiers: Obstruction and gangrene presence: without obstruction or gangrene Qualified Code(s): K43.2 - Incisional hernia without obstruction or gangrene Plan 44-year-old female patient status post repair of an incisional hernia on 03/31/2024 returning today after lifting garbage at home and resulting in increased pain in the incision. Also notes discharge from the incision. On examination she is exquisitely tender around the incision but no definite hernias palpable although exam is difficult. I recommended starting antibiotics and obtaining a CT abdomen and pelvis to evaluate for any additional injury from lifting the garbage at home. She will need to stay out of work and can not return to work tomorrow. She will follow-up after the CT abdomen and pelvis. Orders: Orders CT abdomen pelvis wo IV con Today K43.2 - Incisional hernia without obstruction or gangrene Medications: New doxycycline hyclate 100 mg PO BID 30 tabs 0RF K43.2 - Incisional hernia without obstruction or gangrene, L03.90 - Cellulitis, unspecified oxycodone Partial Fill upon patient request. 5 mg PO Q8H PRN 14 tabs 0RF pain K43.2 - Incisional hernia without obstruction or gangrene Coding Level of Care Code Global (80657) Diagnoses Cellulitis L03.90 Incisional hernia, without obstruction or gangrene K43.2 Obstruction and gangrene presence: without obstruction or gangrene
[2024-04-27 09:58] VITALS: BP 184/104; PULSE 87; BMI 29.5
== END 2024-04-27 10:31 | disposition home or self-care (01) ==
PROVIDERS: PCP Nurse Practitioner; Visit Provider Surgery
DX: L03.90 Cellulitis, unspecified (principal); K43.2 Incisional hernia without obstruction or gangrene
CPT/HCPCS: 99212

== ENCOUNTER → 2024-04-27 09:22 | Outpatient (BNVA) | payer MEDICAID, SELFPAY | PROVIDERS: PCP Nurse Practitioner; Visit Provider Surgery | DX: K43.2 Incisional hernia without obstruction or gangrene (principal) | CPT/HCPCS: 99212 ==

== ENCOUNTER 2024-04-28 12:15 | Outpatient (REF) | payer MEDICAID, SELFPAY ==
--- NOTE | ~2024-04-28 | CT_ITS ---
EXAMINATION: CT ABDOMEN AND PELVIS WITHOUT CONTRAST CLINICAL INFORMATION: Incisional hernia without obstruction nor gangrene COMPARISON: None available. TECHNIQUE: Multidetector volumetric imaging was performed from the superior aspect of the liver through the pubic symphysis. Sagittal and coronal reformatted images were obtained on the technologist's workstation. This CT examination was performed using dose optimization techniques as appropriate, variously including the following: *Automated exposure control *Adjustment of mA and/or kV according to patient size (this includes techniques or standardized protocols for targeted exams where dose is matched to indication/reason for exam; i.e. extremities or head) *Use of iterative reconstruction technique DLP: 690 mGy-cm FINDINGS: LUNG BASES: The visualized lung bases are unremarkable. LIVER, GALLBLADDER, AND BILIARY TREE: The liver is normal in size, shape, and attenuation. No focal hepatic lesion or biliary ductal dilatation is present. The gallbladder is unremarkable with no evidence of radiopaque gallstones, gallbladder wall thickening, or obvious pericholecystic inflammatory changes. PANCREAS: Unremarkable. SPLEEN: Unremarkable. ADRENAL GLANDS: Unremarkable. KIDNEYS AND URETERS: The kidneys are normal in size, shape, and attenuation. No hydronephrosis, hydroureter, or calculi seen. No perinephric stranding. BLADDER: Unremarkable. GASTROINTESTINAL TRACT: There are postsurgical changes with bowel loop anastomosis. There is large amount of retained feces in the colon. Appendix is not seen ABDOMINAL WALL: There are postsurgical changes in the anterior abdominal wall along the midline scar with subcutaneous induration, most likely inflammatory changes with skin obliteration, measured approximately 6.0 x 3.3 x 2.7 cm, with attenuation of 15 HU. There is surrounding fat stranding and mesenteric collection seen anterior abdominal wall muscles, measured 6.0 x 1.1 x 6.6 cm possibly abscess formation with attenuation of 6HU. Both of these collections demonstrate thin communication. LYMPH NODES: Normal. VASCULAR: Unremarkable. PELVIC VISCERA: There is fluid in cul-de-sac. Uterus is unremarkable. OSSEOUS STRUCTURES: Unremarkable. CT/CT abdomen pelvis wo IV con IMPRESSION: 1. Postsurgical changes in the anterior abdominal wall with inflammatory changes and possible abscess formation. See measurements in the report 2. Constipation. 3. Small amount of fluid in cul-de-sac. Fleischner guidelines were followed.
== END 2024-04-28 12:16 | disposition home or self-care (01) ==
LOC: HO.CT 12:15
PROVIDERS: PCP Nurse Practitioner; Visit Provider Surgery
DX: K43.2 Incisional hernia without obstruction or gangrene (principal)
CPT/HCPCS: 74176

== ENCOUNTER 2024-05-06 13:55 | Outpatient (AMB) | payer MEDICAID, SELFPAY ==
--- NOTE | 2024-05-06 14:11 | MHC.OFFVIS ---
Vital Signs 05/06/24 14:12 Height 5 ft 3 in Weight 168 lb BMI 29.8 BP 160/100 H Blood Pressure Location Lt brachial Position Sitting Pulse 91 Intake Visit Reasons: follow up from CT Intake Note: Patient is seen in office for CT results, following incisional hernia repair. 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 She reports itchiness and some discomfort in the incision. She denies any discharge and completed taking the antibiotics. Her most recent CT scan abdomen and pelvis revealed some postoperative changes with fluid collection and which an abscess was questioned. She has relief while wearing her abdominal binder. [facility] Medical History Hx of abscess of breast Panic attacks Smoker Hx of mastitis History of diverticulitis (~2019) Sacroiliac joint dysfunction Back pain Depression EDY (generalized anxiety disorder) PTSD (post-traumatic stress disorder) Surgical History History of incisional hernia repair (03/31/24) Hx of colectomy (~04/2020) History of reversal of ileostomy (~07/2020) Hx of lumpectomy Hx of section (~2005) Family History Father Cancer of unknown origin Social History Household Members: Family Housing: House Are you a primary infant childcare provider to a significant other at home: No Do you presently have visiting nurse or other home services: Yes Alcohol intake: current Alcohol intake frequency: holidays/special occasions only Comment: counts correct Patient Tobacco Use Status: Current everyday Tobacco user Tobacco use type: Cigarette Cigarettes Per Day: 7 Substance Use Type: Marijuana service: No Physical Exam Vital Signs: Last Vital Signs Pulse 91 05/06/24 14:12 BP 160/100 H 05/06/24 14:12 BMI result Body Mass Index 29.8 Const General: no acute distress Nutritional Appearance: well nourished Orientation/consciousness: patient oriented x3 Resp Effort & Inspection: normal respiratory effort GI Other: Midline incision is clean, dry and intact without redness or discharge. No hernias noted with Valsalva maneuvers. Minimal tenderness with light palpation. Neuro General: patient oriented x3 Extrem Other: No edema Assessment & Plan Assessment & Plan (1) Incisional hernia: Code(s): K43.2 - Incisional hernia without obstruction or gangrene Category: Medical Qualifiers: Obstruction and gangrene presence: without obstruction or gangrene Qualified Code(s): K43.2 - Incisional hernia without obstruction or gangrene Plan: Patient is wounds are clean, dry, and intact. There is no evidence of recurrent hernia. Patient may return to work part-time with no lifting greater than 10 lb for the next 2 weeks. She will return in 2 weeks for follow-up examination. (2) Cellulitis: Code(s): L03.90 - Cellulitis, unspecified Category: Medical Plan: Abdominal wall cellulitis is resolved. Coding Level of Care Code Global (71584) Diagnoses Incisional hernia, without obstruction or gangrene K43.2 Obstruction and gangrene presence: without obstruction or gangrene Cellulitis L03.90
[2024-05-06 14:12] VITALS: BP 160/100; PULSE 91; BMI 29.8
== END 2024-05-06 14:29 | disposition home or self-care (01) ==
PROVIDERS: PCP Nurse Practitioner; Visit Provider Surgery
DX: K43.2 Incisional hernia without obstruction or gangrene (principal); L03.90 Cellulitis, unspecified
CPT/HCPCS: 99212

== ENCOUNTER → 2024-05-06 13:55 | Outpatient (BNVA) | payer MEDICAID, SELFPAY | PROVIDERS: PCP Nurse Practitioner; Visit Provider Surgery | DX: K43.2 Incisional hernia without obstruction or gangrene (principal); L03.90 Cellulitis, unspecified | CPT/HCPCS: 99212 ==

== ENCOUNTER 2024-05-20 09:36 | Outpatient (AMB) | payer MEDICAID, SELFPAY ==
--- NOTE | 2024-05-20 09:47 | A.OFFVIS_ITS ---
Vital Signs 05/20/24 09:55 Height 5 ft 3 in Weight 168 lb BMI 29.8 Pulse 80 Intake Visit Reasons: 2 week follow up from CT Intake Note: Patient is seen in office for 2 wks follow up visit, post incisional hernia repair. 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 Accompanied by: Self / Same As Patient Allergies peach Allergy (Severe, Verified 05/20/24 09:56) Hives Sulfa (Sulfonamide Antibiotics) [SULFA (SULFONAMIDE ANTIBIOTICS)] Allergy (Severe, Verified 05/20/24 09:56) HIVES sulfamethoxazole [From BACTRIM] Allergy (Severe, Verified 05/20/24 09:56) HIVES trimethoprim [From BACTRIM] Allergy (Severe, Verified 05/20/24 09:56) HIVES Penicillins [PENICILLINS] Allergy (Unknown, Verified 05/20/24 09:56) HIVES, as a child Medication List - Last Reconciled 05/20/24 by Pino Barahona MD albuterol sulfate 90 mcg/actuation 2 inhalations inhalation QID PRN baclofen 5 mg PO TID PRN clonazepam 1 mg PO QID PRN clonidine HCl 0.1 mg PO TID PRN doxycycline hyclate 100 mg PO BID fceebtgrjbj-ftiugecyt-zsvnlbsa 100-62.5-25 mcg (Trelegy Ellipta) 1 inh inhalation DAILY gabapentin 300 mg PO TID ibuprofen 800 mg PO TID PRN ipratropium-albuterol 0.5 mg-3 mg(2.5 mg base)/3 mL 3 mL inhalation DAILY mirtazapine 15 mg PO BEDTIME montelukast (Singulair) 10 mg PO BEDTIME oxycodone 5 mg PO Q8H PRN trazodone 150 mg PO BEDTIME HPI Comments Details: Patient teary-eyed because her breaks when her car today. Reports feeling improved from her abdominal incision. Does have some itchiness which he feels is from the abdominal binder. She does wear the binder while at work because it keeps her from straining the incision. [facility] Medical History Hx of abscess of breast Panic attacks Smoker Hx of mastitis History of diverticulitis (~2019) Sacroiliac joint dysfunction Back pain Depression EDY (generalized anxiety disorder) PTSD (post-traumatic stress disorder) Surgical History History of incisional hernia repair (03/31/24) Hx of colectomy (~04/2020) History of reversal of ileostomy (~07/2020) Hx of lumpectomy Hx of section (~2005) Family History Father Cancer of unknown origin Social History Household Members: Family Housing: House Are you a primary personal care home administrator to a significant other at home: No Do you presently have visiting nurse or other home services: Yes Alcohol intake: current Alcohol intake frequency: holidays/special occasions only Comment: counts correct Patient Tobacco Use Status: Current everyday Tobacco user Tobacco use type: Cigarette Cigarettes Per Day: 7 Substance Use Type: Marijuana service: No Physical Exam Const General: comfortable Nutritional Appearance: well nourished Orientation/consciousness: patient oriented x3 Resp Effort & Inspection: normal respiratory effort GI Other: Midline incision is clean, dry, and intact without redness or discharge. No changes noted with Valsalva maneuvers to indicate a recurrent hernia. No evidence of infection. Neuro General: patient oriented x3 Extrem Other: No edema Assessment & Plan Assessment & Plan (1) Incisional hernia: Code(s): K43.2 - Incisional hernia without obstruction or gangrene Category: Medical Qualifiers: Obstruction and gangrene presence: without obstruction or gangrene Qualified Code(s): K43.2 - Incisional hernia without obstruction or gangrene Plan 44-year-old female patient returning for final postoperative visit after repair of an incisional hernia with mesh. Her wounds are clean and intact without redness or discharge. There is no evidence of recurrent hernia at this time. She may resume normal activity without restrictions and should follow up as needed. Coding Level of Care Code Global (54669) Diagnoses Incisional hernia, without obstruction or gangrene K43.2 Obstruction and gangrene presence: without obstruction or gangrene
[2024-05-20 09:55] VITALS: PULSE 80; BMI 29.8
== END 2024-05-20 10:33 | disposition home or self-care (01) ==
PROVIDERS: PCP Nurse Practitioner; Visit Provider Surgery
DX: K43.2 Incisional hernia without obstruction or gangrene (principal)
CPT/HCPCS: 99212

== ENCOUNTER → 2024-05-20 09:36 | Outpatient (BNVA) | payer MEDICAID, SELFPAY | PROVIDERS: PCP Nurse Practitioner; Visit Provider Surgery | DX: Z48.815 Encounter for surgical aftercare following surgery on the digestive system (principal); Z87.19 Personal history of other diseases of the digestive system; Z98.890 Other specified postprocedural states | CPT/HCPCS: 99212 ==